=== PATIENT | male | born 2000 | race Caucasian/White ===

== ENCOUNTER 2022-02-18 18:49 | Emergency (ER) | payer OTHER ==
[2022-02-18 21:05] LABS: HEMOGLOBIN 15.5 gm/dl (14.0-17.5); RED BLOOD COUNT 5.55 M/UL (4.20-5.50); WHITE BLOOD COUNT 9.6 K/UL (4.5-11.0)
[2022-02-18 21:22] LABS: BUN/CREATININE RATIO 26 (0-10)
== END 2022-02-19 00:45 | disposition home or self-care (01) ==
LOC: ER1 18:49
PROVIDERS: Family Medicine
DX: R59.0 Localized enlarged lymph nodes (principal); F17.290 Nicotine dependence, other tobacco product, uncomplicated
CPT/HCPCS: 71045; 80053; 85025; 93005; 99285